=== PATIENT | female | born 1985 | race Caucasian/White ===

== ENCOUNTER 2022-11-28 20:25 | Emergency (ER) | payer OTHER, SELFPAY ==
[2022-11-28 21:03] VITALS: BP 131/62; PULSE 95; RESP 22; TEMP 38.8; O2SAT 97; BMI 19.7
[2022-11-28 21:20] VITALS: TEMP 38.8
[2022-11-28] MEDS: IBUPROFEN 400 MG TABLET 800 MG PO (21:20)
[2022-11-28] MEDS: ACETAMINOPHEN 325 MG TABLET 975 MG PO (21:20)
[2022-11-28] MEDS: ONDANSETRON 4 MG ODT SL (21:20)
[2022-11-28 22:08] VITALS: BP 111/60; PULSE 102; TEMP 36.8; O2SAT 97
[2022-11-28 22:10] VITALS: BP 113/57; PULSE 98; O2SAT 96
[2022-11-28 22:29] LABS: Adenovirus Detected (Not Detect); B. parapertussis Not Detected (Not Detecte); Bordetella pertussis Not Detected (Not Detecte); Chlamydophila pneumoniae Not Detected (Not Detect); Coronavirus 229E Not Detected (Not Detect); Coronavirus HKU1 Not Detected (Not Detect); Coronavirus NL 63 Not Detected (Not Detect); Coronavirus OC43 Not Detected (Not Detect); Human Metapneumovirus Not Detected (Not Detect); Human Rhinovirus/Enterovirus Not Detected (Not Detect); Influenza A Not Detected (Not Detect); Influenza B Not Detected (Not Detect); Mycoplasma pneumoniae Not Detected (Not Detect); Parainfluenza Virus 1 Not Detected (Not Detect); Parainfluenza Virus 2 Not Detected (Not Detect); Parainfluenza Virus 3 Not Detected (Not Detect); Parainfluenza Virus 4 Not Detected (Not Detect); Respiratory Syncytial Virus Not Detected (Not Detect); SARS- CoV-2 Not Detected (Not Detecte)
[2022-11-28 22:30] VITALS: BP 104/58; PULSE 94; O2SAT 96
--- NOTE | 2022-11-28 22:44 | ED.GENADULT ---
HPI - General Adult General Chief complaint: Upper Respiratory Symptoms Stated complaint: fever, sore throat, headache x 4 days Time Seen by Provider: 11/28/22 22:30 Source: patient Mode of arrival: Ambulatory Limitations: no limitations History of Present Illness HPI narrative: Patient is a 37-year-old otherwise healthy female here for evaluation of 4 days of the headache and sore throat and fevers. She is not had a cough. She does have some swollen lymph nodes in her neck. No rashes. No problems breathing. Related Data Allergies Allergy/AdvReac Type Severity Reaction Status Date / Time No Known Drug Allergies Allergy Verified 11/28/22 21:03 Review of Systems Constitutional Constitutional: Reports system reviewed and no additional complaints, except as documented ENT Ears, Nose, Mouth, and Throat: Reports system reviewed and no additional complaints, except as documented Respiratory Respiratory: Reports system reviewed and no additional complaints, except as documented Integumentary/Breasts Skin/Breast: Reports system reviewed and no additional complaints, except as documented Patient History Social History Smoking Status: Never smoker Smoking Status: Never smoker alcohol intake frequency: holidays/special occasions only Substance Use Type: does not use Exam Initial Vital Signs Initial Vital Signs: Vital Signs Temperature 102 F H 11/28/22 21:03 Pulse Rate 95 H 11/28/22 21:03 Respiratory Rate 22 11/28/22 21:03 Blood Pressure 131/62 11/28/22 21:03 Pulse Oximetry 97 11/28/22 21:03 Oxygen Delivery Method Room Air 11/28/22 21:03 Const General: cooperative, healthy appearing, comfortable and No ill appearing [facility] Head: normal to inspection and normocephalic Ears: hearing grossly normal bilaterally Throat: uvula midline and abnormal tonsil bilaterally erythema and exudates Neck Lymphatic: lymphadenopathy Resp Effort & Inspection: normal respiratory effort Auscultation: clear to auscultation bilaterally Cardio Rate: regular rate Rhythm: regular rhythm GI Inspection: normal to inspection Skin General: no rashes or lesions noted Neuro General: patient alert, patient awake and moves all extremities Course Orders Ordered: ED Orders 11/28/22 21:15 Respiratory Panel (Film Array) Stat Throat Culture Stat Discontinued Medications Acetaminophen (Acetaminophen 325 Mg Tablet) 975 mg PO NOW ONE Stop: 11/28/22 21:10 Last Admin: 11/28/22 21:20 Dose: 975 mg Documented By: AYE Ibuprofen (Ibuprofen 400 Mg Tablet) 800 mg PO NOW ONE Stop: 11/28/22 21:10 Last Admin: 11/28/22 21:20 Dose: 800 mg Documented By: AYE Ondansetron HCl (Ondansetron 4 Mg Odt) 4 mg SL NOW ONE Stop: 11/28/22 21:11 Last Admin: 11/28/22 21:20 Dose: 4 mg Documented By: AYE Vital Signs Vital signs: Vital Signs - 8 hr 11/28/22 21:03 11/28/22 21:20 11/28/22 22:08 Temperature 102 F H 102 F H Pulse Rate 95 H Respiratory Rate 22 Blood Pressure 131/62 111/60 Pulse Oximetry 97 Oxygen Delivery Method Room Air 11/28/22 22:08 11/28/22 22:10 11/28/22 22:10 Temperature 98.3 F Pulse Rate 102 H 98 H Respiratory Rate Blood Pressure 113/57 L Pulse Oximetry 97 96 Oxygen Delivery Method Room Air 11/28/22 22:30 11/28/22 22:30 Temperature Pulse Rate 94 H Respiratory Rate Blood Pressure 104/58 L Pulse Oximetry 96 Oxygen Delivery Method Medical Decision Making Lab Data Lab results reviewed: Yes I reviewed the patient's lab results. Labs: Lab Results 11/28/22 Range/Units 21:15 Chlamy pneumoniae PCR Not detected (Not Detect) Adenovirus (PCR) Detected H (Not Detect) B. pertussis DNA (PCR) Not detected (Not Detecte) B.parapertussis DNA PCR Not detected (Not Detecte) Coronavirus OC43 (PCR) Not detected (Not Detect) Coronavirus HKU1 (PCR) Not detected (Not Detect) Coronavirus 229E (PCR) Not detected (Not Detect) SARS-CoV-2 (PCR) Not detected (Not Detecte) Coronavirus NL63 (PCR) Not detected (Not Detect) Human Metapneumovir PCR Not detected (Not Detect) Influenza Type A (PCR) Not detected (Not Detect) Influenza Type B (PCR) Not detected (Not Detect) M. pneumoniae (PCR) Not detected (Not Detect) Parainfluenza 1 (PCR) Not detected (Not Detect) Parainfluenza 2 (PCR) Not detected (Not Detect) Parainfluenza 3 (PCR) Not detected (Not Detect) Parainfluenza 4 (PCR) Not detected (Not Detect) RSV (PCR) Not detected (Not Detect) Entero/Rhino (PCR) Not detected (Not Detect) Point of Care Testing Rapid Strep A Negative Point of care testing: Point of Care Testing Rapid Strep A Negative MDM Narrative Medical decision making narrative: Patient does have a positive on her respiratory panel that could very well be explaining her symptoms however she does have erythema and exudates on her tonsils. She also has submandibular lymphadenopathy. She has no respiratory distress. Low suspicion for peritonsillar abscess/retropharyngeal abscess. Had a long discussion with the patient regarding this. Her rapid strep was negative. Given her physical exam I do have some suspicion that she is positive for strep given presentation despite her negative rapid strep. We discussed starting on antibiotics and treating her presumptively or waiting until the throat culture results. After this discussion the patient opted to wait for the throat culture. We will contact her if it is positive. She was given return precautions and follow-up instructions. She expressed understanding and agreement. Discharge Plan Departure Patient Disposition: Home Clinical Impression: Adenovirus infection, Pharyngitis Instructions: Sore Throat, DI for Viral Upper Respiratory Infection -- Adult Activity Restrictions/Additional Instructions: A throat culture is pending at the time of your discharge and we will contact you if we need to start any antibiotics based on this. I do recommend [id number] decongestants. Contact your medical department for a follow-up. Return to the emergency department for new symptoms. Referrals: Antonio Clemons [Primary Care Provider] - Stand Alone Forms: Patient Portal/API, Work Release Note
== END 2022-11-28 22:52 | disposition home or self-care (01) ==
PROVIDERS: Emergency Provider Emergency Medicine
DX: J02.9 Acute pharyngitis, unspecified (principal); B34.0 Adenovirus infection, unspecified; Z20.822 Contact with and (suspected) exposure to COVID-19
CPT/HCPCS: 87070; 87633; 87880; 99282; 99283